=== PATIENT | female | born 1995 | race African-American/Black ===

== ENCOUNTER 2017-06-04 21:23 | Emergency (ER) | payer OTHER ==
[2017-06-04] MEDS ORDERED: Lidocaine 4% Cream 5 GM TUBE w/ Tegaderm ONE (22:23)
--- NOTE | 2017-06-04 22:44 | RAD ---
TOES RIGHT FOOT THREE VIEWS: History: Splinter between 4th and 5th toe. FINDINGS: No soft tissue foreign body identified. Wooden splinter would not be apparent on plain film. No osseo us abnormality identified. IMPRESSION: No acute abnormality seen. POS: [facility]
[2017-06-04] MEDS ORDERED: Lidocaine 1% PF 5 ML VIAL ONE (22:51)
== END 2017-06-04 23:04 | disposition home or self-care (01) ==
LOC: ERS 21:23
DX: L02.611 Cutaneous abscess of right foot (principal); G43.909 Migraine, unspecified, not intractable, without status migrainosus
CPT/HCPCS: 10160; J2001

== ENCOUNTER 2020-11-03 20:08 | Emergency (ER) | payer OTHER ==
[2020-11-03 21:28] LABS: #Eosinphils 0.2 thou/uL (0.0-0.7); #Lymphocytes 2.4 thou/uL (1.20-3.40); #Monocytes 0.6 thou/uL (0.11-0.59); #Neutrophils 3.2 thou/uL (1.40-6.50); %Basophils 0.7 % (0.0-1.0); %Eosinophils 2.6 % (0.0-10.0); %Lymphocytes 37.2 % (21.0-51.0); %Monocytes 9.9 % (0.0-10.0); %Neutrophils 49.6 % (42.0-75.0); Hemoglobin 12.6 g/dL (12.0-16.0); Mean Corpuscular HGB CONC 33.7 g/dL (32.0-36.0); Mean Corpuscular Hemoglobin 30.5 pg (27.0-31.0); Mean Corpuscular Volume 90.3 fL (78.0-98.0); Mean Platelet Volume 7.9 fL (7.4-10.4); Platelet Count 236 thou/uL (130-400); RBC Distribution Width 11.7 % (11.5-14.5); Red Blood Cell (RBC) Count 4.14 mill/uL (4.20-5.40); White Blood Cell (WBC) Count 6.5 thou/uL (4.8-10.8)
[2020-11-03 21:38] LABS: BHCG - Serum Negative (NEGATIVE); Pregs Control Background? CLEAR/WHITE (CLR/WHITE); Pregs Control Bar Appear? YES (CONTROL BAR)
== END 2020-11-03 22:30 | disposition home or self-care (01) ==
LOC: ERS 20:08
DX: N93.9 Abnormal uterine and vaginal bleeding, unspecified (principal)
CPT/HCPCS: 36415; 84703; 85025; 99284